=== PATIENT | male | born 1980 | race Caucasian/White ===

== ENCOUNTER 2019-05-31 16:01 | Outpatient (CLI) | payer BC, SELFPAY ==
--- NOTE | ~2019-05-31 | XR_ITS ---
EXAMINATION:XR_CERV2-3V_CR DATE: 05/31/2019 16:58 INDICATION: Neck pain TECHNIQUE: AP, lateral, lateral swimmers and odontoid views of the cervical spine are provided. COMPARISON: None FINDINGS: Alignment is normal. There is straightening of the cervical spine which can be positional o r due to muscular spasm. The odontoid is intact. No fracture is identified. Vertebral body heights an d disk spaces are normal. Prevertebral soft tissues are normal. IMPRESSION: 1. Straightening of the cervical spine which may be positional or due to muscular spasm. Reviewed, dictated and finalized at location A. N RESOURCES OPERATIONS SPECIALIST IMPRESSION: 1. Straightening of the cervical spine which may be positional or due to muscul ar spasm.
--- NOTE | ~2019-05-31 | XR_ITS ---
EXAMINATION: XR thoracic spine 2V DATE: 05/31/2019 16:58 INDICATION: Back pain TECHNIQUE: AP and lateral views of the thoracic spine were obtained. COMPARISON: None. FINDINGS: Bone alignment is normal. There is no fracture. The vertebral body heights are normal. Ther e is mild loss of intervertebral disc space height of the lower thoracic spine. IMPRESSION: 1. Mild lower thoracic spondylosis without acute findings. Reviewed, dictated and finalized at location A. TIC ATTACHER CHAINSTITCH
--- NOTE | ~2019-05-31 | XR_ITS ---
EXAMINATION: XR lumbar spine 2-3V DATE: 05/31/2019 16:58 INDICATION: Low back pain TECHNIQUE: Anteroposterior and lateral views of the lumbar spine, and cone-down lateral view of the l umbosacral junction were obtained. COMPARISON: None. FINDINGS: There are 13 degrees of lumbar levoscoliosis. Bone alignment is normal. There is no fractur e. The vertebral body heights are normal. There is mild loss of intervertebral disc space height thro ughout the lumbar spine. Small degenerative osteophytes project from the anterior endplates of multip le vertebral bodies. IMPRESSION: 1. Mild lumbar spondylosis. Reviewed, dictated and finalized at location A. OBIOLOGY LAB ANALYST IMPRESSION: 1. Mild lumbar spondylosis.
== END 2019-05-31 16:02 ==
PROVIDERS: Visit Provider Chiropractor
DX: M47.816 Spondylosis without myelopathy or radiculopathy, lumbar region (principal); M47.814 Spondylosis without myelopathy or radiculopathy, thoracic region; M43.8X2 Other specified deforming dorsopathies, cervical region
CPT/HCPCS: 72040; 72070; 72100

== ENCOUNTER 2021-08-31 16:52 | Emergency (ER) | payer BC, SELFPAY ==
--- NOTE | 2021-08-31 17:03 | PC.NURSE ---
in br to obtain ua spec.
--- NOTE | 2021-08-31 17:03 | ED.MALEGU ---
HPI - Male Genitourinary General Chief complaint: Urogenital-Male Stated complaint: UTI Time Seen by Provider: 08/31/21 17:03 Source: patient, RN notes reviewed and old records reviewed Mode of arrival: ambulatory Limitations: no limitations History of Present Illness HPI Narrative: 41-year-old male presents to the [facility] with complaints of dysuria. Has a history of back pain for several weeks but states discomfort with urination, states it feels like his bladder remains full even after urination. Denies any testicular pain, penile discharge, concerns for STDs. MD Complaint: dysuria Related Data Home Medications Medication Instructions Recorded Confirmed adalimumab [Humira(CF) Pen] mg SUBCUT 08/31/21 ergocalciferol (vitamin D2) 08/31/21 Allergies Allergy/AdvReac Type Severity Reaction Status Date / Time nitrofurantoin Allergy Intermediate Swelling Verified 05/22/18 01:52 Review of Systems Review of Systems: All systems reviewed & are unremarkable except as noted in HPI and below Constitutional: Constitutional: Reports no additional constitutional complaints, Denies chills and Denies fatigue Eyes: Eyes: Reports no additional eye complaints ENT: Reports system reviewed and no additional complaints, except as documented Cardiovascular: Cardiovascular: Reports no additional cardiovascular complaints Respiratory: Respiratory: Reports no additional respiratory complaints Gastrointestinal: Gastrointestinal: Reports no additional gastrointestinal complaints, Denies abdominal pain, Denies diarrhea, Denies nausea and Denies vomiting Genitourinary: Genitourinary: Reports as per HPI, Reports hematuria, Reports dysuria, Denies flank pain, Reports nocturia, Denies penile discharge, Denies testicular pain, Reports urinary frequency, Denies urinary incontinence and Denies urinary urgency Musculoskeletal: Musculoskeletal: Reports as per HPI and Reports back pain (Been going on for weeks) Integumentary/Breasts: Skin/Breast: Reports system reviewed and no additional complaints, except as docu Neurologic: Reports system reviewed and no additional complaints, except as documented Psychiatric: Psychiatric: Reports no additional psychiatric complaints Endocrine: Endocrine: Denies fatigue Allergic/Immunologic: Allergic/Immunologic: Reports no additional allergic/immunologic complaints [facility] Past Medical History Medical History (Updated 08/31/21 @ 20:23 by Georgia Vance APRN) Psoriasis Social History Social History Living arrangements: with family Gender identity (if verbalized by the patient): Male Comments At the time of my signature, I reviewed and agree with the nursing past medical, surgical, social, and family history. There is no relevant family history pertinent to the patient complaint. Exam Const: General: healthy appearing, no acute distress and alert Nutritional Appearance: well nourished and obese morbidly obese Orientation/consciousness: patient oriented x3 Limitations: no limitations HENMT: Head: normal to inspection Ears: external ears normal General nose exam: Normal external nose present Eyes: General: appearance normal, both eyes and all related structures Alignment and Position: alignment normal Conjunctivae: conjunctivae normal Pupils: Equal, round and reactive pupils present Neck: Neck: normal visual inspection, no lymphadenopathy and no meningeal signs Chest: Chest palpation & inspection: normal inspection of the chest and abnormal inspection of the chest Resp: Effort & Inspection: normal respiratory effort Auscultation: clear to auscultation bilaterally Cardio: Rate: regular rate Rhythm: regular rhythm GI: GI Palp: Yes Soft to palpation and No Tenderness to palpation present (GI) : General: Yes no CVA tenderness Back/Spine/Pelvis: Back: no CVA tenderness Skin: General skin exam: normal color Rashes: no rashe
[2021-08-31 17:05] VITALS: BP 152/87; PULSE 102; RESP 18; TEMP 37.2; O2SAT 98
== END 2021-08-31 17:25 | disposition home or self-care (01) ==
PROVIDERS: Emergency Provider Nurse Practitioner; PCP Family Medicine
DX: N30.01 Acute cystitis with hematuria (principal); L40.50 Arthropathic psoriasis, unspecified; Z86.16 Personal history of COVID-19
CPT/HCPCS: 81003; 87077; 87086; 87186; 99213; G0463

== ENCOUNTER 2021-12-16 10:03 | Emergency (ER) | payer BC, SELFPAY ==
--- NOTE | ~2021-12-16 | XR_ITS ---
EXAMINATION: XR sacrum coccyx min 2V DATE: 12/16/2021 11:00 INDICATION: Tailbone pain. Fall. TECHNIQUE: 3 views of the sacrum and coccyx on 5 radiographs were obtained. COMPARISON: Lumbar spine radiographs 05/31/2019 FINDINGS: Bone alignment is normal. No fracture. There is mild lumbar spondylosis. There is mild oste oarthritis of the hips. IMPRESSION: 1. No fracture. Reviewed, dictated and finalized at location A. IMPRESSION: 1. No fracture.
--- NOTE | 2021-12-16 10:05 | ED.BACK ---
HPI - Back Pain/Injury General Chief Complaint: Unspecified Stated Complaint: tail bone/neck pain Time Seen by Provider: 12/16/21 10:05 Source: patient Mode of arrival: ambulatory Limitations: no limitations History of Present Illness HPI Narrative: Mr. Short is a 41-year-old male patient presenting to the clinic today with complaints of tailbone pain after a fall yesterday. He reports he was walking up the steps and stepped on a pet dish and fell on his bottom. He reports most of his pain is to his tailbone and is radiating up into his back. He denies any current neck pain and has full range of neck motion of his neck without pain. Sitting and standing makes the pain worse Related Data Home Medications Medication Instructions Recorded Confirmed adalimumab 40 mg/0.4 mL mg subcut 08/31/21 subcutaneous pen kit (Humira(CF) Pen) ergocalciferol (vitamin D2) 1,250 08/31/21 mcg (50,000 unit) capsule amoxicillin 875 mg-potassium tablet 12/16/21 clavulanate 125 mg tablet cyanocobalamin (vitamin B-12) mcg 12/16/21 1,000 mcg tablet folic acid 1 mg tablet 12/16/21 metformin 500 mg tablet mg 12/16/21 Allergies Allergy/AdvReac Type Severity Reaction Status Date / Time nitrofurantoin Allergy Intermediate Swelling Verified 12/16/21 10:17 Review of Systems Review of Systems: CONSTITUTIONAL: Denies fever, chills, or sweats. EYES: Denies visual changes, redness, or discharge. ENT: Denies rhinorrhea, congestion, sore throat, or otalgia. CARDIOVASCULAR: Denies chest pain, palpitations, or edema. RESPIRATORY: Denies cough or dyspnea. GASTROINTESTINAL: Denies abdominal pain, nausea, vomiting, or diarrhea. GENITOURINARY: Denies dysuria or hematuria. SKIN: Denies rash or itching. MUSCULOSKELETAL: Denies back pain, joint pain, or myalgia. NEUROLOGIC: Denies headache, numbness, or weakness. PSYCHIATRIC: Denies anxiety or depression. [facility] Past Medical History Medical History Psoriasis Social History Social History Gender identity (if verbalized by the patient): Male Comments At the time of my signature, I reviewed and agree with the nursing past medical, surgical, social, and family history. There is no relevant family history pertinent to the patient complaint. Exam Narrative: General: Well-developed, morbidly obese, in no apparent distress Head: Normocephalic, atraumatic. Cardio: Regular rate and rhythm, s1 and s2 normal, no murmur appreciated. Resp: Clear to auscultation bilaterally, no rhonchi, rales, wheezing or rubs. Musculoskeletal: No deformity, bruising and swelling noted to the coccyx area, tender to palpation over the coccyx, discomfort with extension of the spine over the lumbar and coccyx, grossly normal range of motion, muscle strength strong and equal, peripheral pulse strong, no edema, no cyanosis, normal gait and station Course Course Emergency Course: Portions of this record may have been created with voice recognition software. Level of Care: Express Care Visit Vital Signs Vital signs: Vital Signs Temperature 36.8 C 12/16/21 10:11 Pulse Rate 112 H 12/16/21 10:11 Respiratory Rate 20 12/16/21 10:11 Blood Pressure 123/83 12/16/21 10:11 Pulse Oximetry 95 12/16/21 10:11 Oxygen Delivery Room Air 12/16/21 10:11 Temperature 36.8 C 12/16/21 10:11 Pulse Rate 112 H 12/16/21 10:11 Respiratory Rate 20 12/16/21 10:11 Blood Pressure 123/83 12/16/21 10:11 Pulse Oximetry 95 12/16/21 10:11 Oxygen Delivery Room Air 12/16/21 10:11 Vital signs reviewed MDM - Back Pain/Injury MDM Narrative Medical decision making narrative: At the time of visit patient is resting comfortably on the exam table. He does have moderate pain with sitting. X-ray was performed and was negative for any acute fracture of the coccyx. Supportive measures w
[2021-12-16 10:11] VITALS: BP 123/83; PULSE 112; RESP 20; TEMP 36.8; O2SAT 95
== END 2021-12-16 11:30 | disposition home or self-care (01) ==
PROVIDERS: Emergency Provider Nurse Practitioner Family; PCP Nurse Practitioner Family
DX: M53.3 Sacrococcygeal disorders, not elsewhere classified (principal); L40.9 Psoriasis, unspecified
CPT/HCPCS: 72220; 99213; G0463

== ENCOUNTER 2021-12-30 13:17 | Outpatient (CLI) | payer BC, SELFPAY ==
--- NOTE | ~2021-12-30 | CT_ITS ---
EXAMINATION: CT abdomen pelvis wo con DATE: 12/30/2021 13:35 INDICATION: Flank pain. Gross hematuria. TECHNIQUE: Computed tomography (CT) of the abdomen and pelvis was performed without intravenous contr ast. Automated exposure control and iterative reconstruction technique were employed. The dose-length product was 1869.59 mGy-cm. COMPARISON: None FINDINGS: Calcified right lower lobe nodule consistent with old granulomatous disease. Heart size is normal. No pericardial or pleural effusion. Liver, gallbladder, spleen and bilateral adrenal glands are normal. Punctate calcification at the body of the otherwise normal-appearing pancreas which may represent se quela chronic pancreatitis. Kidneys and ureters are normal with no urolithiasis, hydroureteronephrosi s or perinephric/ureteral stranding. Bladder is normal. Bowels including the appendix are normal. No free intraperitoneal gas or fluid. No pathologically enlarged abdominal or pelvic lymphadenopathy. Mi ld to moderate thoracolumbar spondylosis. Chronic appearing mild likely physiologic anterior wedging at T11-L1. IMPRESSION: 1. No urolithiasis or acute intra-abdominal/pelvic process. Reviewed, dictated and finalized at location A.
== END 2021-12-30 13:18 | disposition home or self-care (01) ==
LOC: ANHIMG 13:21
PROVIDERS: PCP Nurse Practitioner Family; Visit Provider Nurse Practitioner Family
DX: M47.815 Spondylosis without myelopathy or radiculopathy, thoracolumbar region (principal); R10.9 Unspecified abdominal pain; R31.0 Gross hematuria
CPT/HCPCS: 74176